=== PATIENT | female | born 1995 | race Caucasian/White ===

== ENCOUNTER 2017-07-14 07:01 | Emergency (ER) | payer OTHER, MEDICAID, SELFPAY ==
[2017-07-14 07:15] VITALS: BP 128/92; PULSE 76; RESP 18; TEMP 37.4; O2SAT 97
[2017-07-14] MEDS: ONDANSETRON 4 MG/2 ML INJ IV (07:20)
[2017-07-14] MEDS: SODIUM CHLORIDE 0.9% 1,000 ML 150 ML IV (07:20)
[2017-07-14 07:52] LABS: Add Manual Diff / Slide Review NO; Basophils Percent Auto 0.3 % (0-2); Hematocrit 41.9 % (36-46); Hemoglobin 14.3 g/dL (12.0-16.0); Lymphocytes Percent Auto 7.7 % (25-40); Mean Corpuscular HGB Conc 34.1 % (30-36); Mean Corpuscular Hemoglobin 29.3 PG (26-34); Mean Corpuscular Volume 86.1 fL (80-100); Monocytes Percent Auto 2.7 % (3-14); Neutrophils Absolute Auto 15300 /uL (3000-5900); Neutrophils Percent Auto 89.3 % (50-75); Platelet Count 359 X10^3/uL (150-400); Red Blood Cell Count 4.87 X10^6/uL (4.0-5.2); Red Cell Distribution Width 13.8 % (11.6-14.8); White Blood Cell Count 17.1 X10^3/uL (4.5-11.0)
[2017-07-14 07:58] LABS: Alanine Aminotransferase 31 IU/L (9-52); Albumin 5.1 g/dL (3.5-5.0); Albumin Globulin Ratio 1.1 (1.0-2.8); Alkaline Phosphatase 85 U/L (38-126); Aspartate Aminotransferase 33 IU/L (14-36); BUN Creatinine Ratio 34.3 (6-22); Bilirubin Total 1.1 mg/dL (0.2-1.3); Blood Urea Nitrogen 24 mg/dL (7-17); Carbon Dioxide 22 mmol/L (22-32); Chloride 101 mmol/L (98-107); Estimated Glomerular Filt Rate > 60.0 mL/min (>60); Globulin 4.5 g/dL (1.7-4.1); Glucose 120 mg/dL (70-100); Lipase 54 U/L (23-300); Potassium 3.9 mmol/L (3.4-5.1); Sodium 143 mmol/L (137-145); Total Protein 9.6 g/dL (6.3-8.2)
[2017-07-14 08:01] LABS: HEMOLYSIS 81 (0-50)
[2017-07-14] MEDS: SODIUM CHLORIDE 0.9% 1,000 ML 1000 ML IV (08:46)
[2017-07-14] MEDS: METOCLOPRAMIDE 10 MG/2 ML INJ IV (08:46)
[2017-07-14 08:53] LABS: Procalcitonin < 0.05 ng/mL (<0.5)
[2017-07-14 09:22] VITALS: BP 99/46; PULSE 76; RESP 24; O2SAT 99
[2017-07-14 10:10] LABS: Bacteria Urine None Seen; RBC Urine None Seen (0-5/HPF); WBC Urine None Seen (0-5/HPF)
[2017-07-14 10:18] LABS: Urine Amphetamines Negative (Negative); Urine Barbiturates Negative (Negative); Urine Benzodiazepines Negative (Negative); Urine Cocaine Negative (Negative); Urine MDMA Negative (Negative); Urine Methadone Negative (Negative); Urine Methamphetamines Negative (Negative); Urine Morphine/Opi cutoff 2000 Negative (Negative); Urine Oxycodone Negative (Negative); Urine Phencyclidine Negative (Negative); Urine Tetrahydrocannabinol Positive (Negative); Urine Tricyclic Antidepressant Negative (Negative)
[2017-07-14 10:34] LABS: Amorphous Sediment Urine 1+; Culture Indicated Urine Cult Not Indicated; Mucus Urine 1+ (Negative); Squamous Epithelial Cell Urine 1-5 /HPF
--- NOTE | 2017-07-14 10:53 | ED.NAVMDI ---
HPI - Nausea/Vomiting/Diarrhea General Chief complaint: Nausea/Vomiting/Diarrhea Stated complaint: VOMITING 3 DAYS,BLACK SPECKS Time Seen by Provider: 07/14/17 07:02 History of Present Illness HPI Narrative: HPI 21-year-old female with a history of recurrent episodes of catamenial nausea, vomiting, diarrhea, and abdominal discomfort presents with 3 days of nonbilious typical frequent vomiting, mild abdominal discomfort, and one day of loose watery stools symptom onset. Patient currently believes she is on her menses. Patient symptoms typically last 3 days, but of lasted upwards of a week. Patient denies fevers. Patient notes that she has had small flecks in her emesis. Patient has not seen a PCP or CORPORATE OPERATIONS COMPLIANCE MANAGER reportedly due to lack of insurance. * Denies: recent antibiotics, fresh or salt water exposure, recent hospitalization, travel, drinking untreated water, history of c. difficile. * Fever/rigors: denies. * HIV or immunocompromise: denies. * Cough: denies. M/S/F/SocHx notable for: please see HPI; remainder reviewed with patient and in chart. ROS: Negative constitutional, eye, cardiovascular, pulmonary, GI, , MSK, skin, neurologic, psychiatric, endocrine unless noted in the HPI. Exam Gen: Pleasant, non-toxic appearing, appears mild to moderately uncomfortable, holding an emesis bag. HEENT: NC, AT, PEERL, EOMI, neck supple with full range of movement. Resp: Clear to auscultation bilaterally, normal work of breathing, no accessory muscle usage. Card: Regular rate and rhythm with no murmurs, rubs, or gallops, extremities warm and well perfused. GI: Non-tender to palpation throughout all quadrants, no focal tenderness at McBurney's point, negative El's sign, non-distended, no rebound or guarding. : No suprapubic tenderness to palpation.No CVA tenderness to percussion bilaterally.Deferred MSK: No visible deformities, strength and tone without visually appreciable deficit. Skin: Normal color with no visible lesions. Neuro: AO x 3, no facial asymmetry, vision and hearing WNL. Psych: Mood and affect appropriate. Labs / Imaging (pertinent): WBC 17.1, HB 14.3, NA 143, K 3.9, glucose 120, Procalcitonin less than 0.05 UDS TCA and THC positive. MDM Previous chart, nursing note, and vitals reviewed. A: 21-year-old female with a history of recurrent episodes of catamenial nausea, vomiting, diarrhea, and abdominal discomfort presents with 3 days of nonbilious typical frequent vomiting, mild abdominal discomfort, and one day of loose watery stools symptom onset. DDx: viral enteritis, viral gastroenteritis, bacterial gastroenteritis, food poisoning, C. Difficile, dehydration, electrolyte abnormalities, septicemia/bacteremia, DKA, acute appendicitis, catamenial cyclic vomiting, cannabinoid hyperemesis. Evaluation: Given the overall symptom constellation, suspect a viral gastroenteritis versus catamenial cyclic vomiting versus cannabinoid hyperemesis. As there was a concern for significant dehydration, labs were checked, these were within clinically acceptable limits. Also considered with septicemia/bacteremia, DKA, acute appendicitis, these are felt to be effectively excluded due to the normal respiratory rate, benign abdominal exam, absence of fever, labs notable only for leukocytosis without Procalcitonin elevation and the patient?s overall well appearance. Patient given Zofran, Reglan and IV fluids and had a significant improvement in symptoms; RX for Reglan provided in patient instructed to follow up with their PCP if not improved by 4 days total symptom duration. Impression: nausea and vomiting (please reference below for remainder of encounter information) Related Data Previous Rx's Medication Instructions Recorded ranitidine HCl 150 mg PO BID #20 tab 08/26/16 promethazine 12.5 mg PO Q6HP PRN #20 tab 08/31/16 omeprazole 20 mg PO BID #28 tab 09/02/16 sulfamethoxazole-trimethoprim 1 tab PO BID #10 tab 09/02/16 Allergies Allergy/AdvReac Type Severity Reaction Status Date / Time No Known Drug Allergies Allergy Verified 07/14/17 07:46 Exam Initial Vital Signs Initial Vital Signs: Vital Signs Temperature 99.4 F 07/14/17 07:15 Pulse Rate 76 07/14/17 07:15 Respiratory Rate 18 07/14/17 07:15 Blood Pressure 128/92 H 07/14/17 07:15 Pulse Oximetry 97 07/14/17 07:15 Course Orders Ordered: ED Orders 07/14/17 07:00 Procalcitonin Stat 07/14/17 07:25 Complete Blood Count AUTO DIFF Stat Comprehensive Metabolic Panel Stat Lipase Stat 07/14/17 09:55 Rapid Drug Screen, Urine Stat Urine Microscopic Stat Sodium Chloride (Normal Saline 0.9%) 1,000 mls @ 150 mls/hr IV CONT ELIZABETH Last Infusion: 07/14/17 08:37 Dose: 0 mls/hr Admin: 07/14/17 07:20 Dose: 150 mls/hr Discontinued Medications Sodium Chloride (Normal Saline 0.9%) 1,000 mls @ 1,000 mls/hr IV BOLUS ONE Stop: 07/14/17 09:23 Last Infusion: 07/14/17 10:13 Dose: 0 mls/hr Admin: 07/14/17 08:46 Dose: 1,000 mls/hr Metoclopramide HCl (Reglan) 10 mg IV NOW ONE Stop: 07/14/17 08:25 Last Admin: 07/14/17 08:46 Dose: 10 mg Ondansetron HCl (Zofran) 4 mg IV NOW ONE Stop: 07/14/17 07:36 Last Admin: 07/14/17 07:20 Dose: 4 mg Vital Signs - 8 hr 07/14/17 07:15 07/14/17 09:22 Temperature 99.4 F Pulse Rate 76 76 Respiratory Rate 18 24 Blood Pressure 128/92 H Blood Pressure [Right Arm] 99/46 L Pulse Oximetry 97 99 MDM - Nausea/Vomiting/Diarrhea Lab Data Result diagrams: 07/14/17 07:25 07/14/17 07:25 Lab Results 07/14/17 07/14/17 07/14/17 Range/Units 07:00 07:25 07:25 WBC 17.1 H (4.5-11.0) X10^3/uL RBC 4.87 (4.0-5.2) X10^6/uL Hgb 14.3 (12.0-16.0) g/dL Hct 41.9 (36-46) % MCV 86.1 (80-100) fL MCH 29.3 (26-34) PG MCHC 34.1 (30-36) % RDW 13.8 (11.6-14.8) % Plt Count 359 (150-400) X10^3/uL Neut % (Auto) 89.3 H (50-75) % Lymph % (Auto) 7.7 L (25-40) % [place] % (Auto) 2.7 L (3-14) % Eos % (Auto) 0.0 L (2-4) % Baso % (Auto) 0.3 (0-2) % Neut # (Auto) 39777 H (0317-7422) /uL Sodium 143 (137-145) mmol/L Potassium 3.9 (3.4-5.1) mmol/L Chloride 101 (98-107) mmol/L Carbon Dioxide 22 (22-32) mmol/L BUN 24 H (7-17) mg/dL Creatinine 0.70 (0.52-1.04) mg/dL Estimated GFR > 60.0 (>60) mL/min BUN/Creatinine Ratio 34.3 H (6-22) Glucose 120 H (70-100) mg/dL Calcium 10.0 (8.4-10.2) mg/dL Total Bilirubin 1.1 (0.2-1.3) mg/dL AST 33 (14-36) IU/L ALT 31 (9-52) IU/L Alkaline Phosphatase 85 (38-126) U/L Total Protein 9.6 H (6.3-8.2) g/dL Albumin 5.1 H (3.5-5.0) g/dL Globulin 4.5 H (1.7-4.1) g/dL Albumin/Globulin Ratio 1.1 (1.0-2.8) Lipase 54 (23-300) U/L Procalcitonin < 0.05 (<0.5) ng/mL Urine RBC (0-5/HPF) Urine WBC (0-5/HPF) Ur Squamous Epith Cells Amorphous Sediment Urine Bacteria (None) Urine Mucus (Negative) Ur Culture Indicated? Micro UA Comment Urine Opiates Screen (Negative) Ur Oxycodone Screen (Negative) Urine Methadone Screen (Negative) Ur Barbiturates Screen (Negative) U Tricyclic Antidepress (Negative) Ur Phencyclidine Scrn (Negative) Ur Amphetamines Screen (Negative) U Methamphetamines Scrn (Negative) Ur MDMA Scrn (Ecstasy) (Negative) U Benzodiazepines Scrn (Negative) Urine Cocaine Screen (Negative) U Marijuana (THC) Screen (Negative) 07/14/17 07/14/17 Range/Units 09:55 09:55 WBC (4.5-11.0) X10^3/uL RBC (4.0-5.2) X10^6/uL Hgb (12.0-16.0) g/dL Hct (36-46) % MCV (80-100) fL MCH (26-34) PG MCHC (30-36) % RDW (11.6-14.8) % Plt Count (150-400) X10^3/uL Neut % (Auto) (50-75) % Lymph % (Auto) (25-40) % [place] % (Auto) (3-14) % Eos % (Auto) (2-4) % Baso % (Auto) (0-2) % Neut # (Auto) (3211-6271) /uL Sodium (137-145) mmol/L Potassium (3.4-5.1) mmol/L Chloride (98-107) mmol/L Carbon Dioxide (22-32) mmol/L BUN (7-17) mg/dL Creatinine (0.52-1.04) mg/dL Estimated GFR (>60) mL/min BUN/Creatinine Ratio (6-22) Glucose (70-100) mg/dL Calcium (8.4-10.2) mg/dL Total Bilirubin (0.2-1.3) mg/dL AST (14-36) IU/L ALT (9-52) IU/L Alkaline Phosphatase (38-126) U/L Total Protein (6.3-8.2) g/dL Albumin (3.5-5.0) g/dL Globulin (1.7-4.1) g/dL Albumin/Globulin Ratio (1.0-2.8) Lipase (23-300) U/L Procalcitonin (<0.5) ng/mL Urine RBC None seen (0-5/HPF) Urine WBC None seen (0-5/HPF) Ur Squamous Epith Cells 1-5 /hpf Amorphous Sediment 1+ Urine Bacteria None seen (None) Urine Mucus 1+ H (Negative) Ur Culture Indicated? Cult not indicated Micro UA Comment Not Reportable Urine Opiates Screen Negative (Negative) Ur Oxycodone Screen Negative (Negative) Urine Methadone Screen Negative (Negative) Ur Barbiturates Screen Negative (Negative) U Tricyclic Antidepress Negative (Negative) Ur Phencyclidine Scrn Negative (Negative) Ur Amphetamines Screen Negative (Negative) U Methamphetamines Scrn Negative (Negative) Ur MDMA Scrn (Ecstasy) Negative (Negative) U Benzodiazepines Scrn Negative (Negative) Urine Cocaine Screen Negative (Negative) U Marijuana (THC) Screen Positive H (Negative) Discharge Plan Departure Prescriptions: No Action ranitidine HCl 150 MG tablet 150 mg PO BID Qty: 20 RF: 0 promethazine 12.5 MG tablet 12.5 mg PO Q6HP PRNQty: 20 RF: 0 omeprazole 20 MG tablet,delayed release (DR/EC) 20 mg PO BID Qty: 28 RF: 0 sulfamethoxazole-trimethoprim 800 MG/160 MG tablet 1 tab PO BID Qty: 10 RF: 0
[2017-07-14 11:03] VITALS: BP 159/110; PULSE 68; RESP 14; O2SAT 99
[2017-07-14] MEDS: HALOPERIDOL 5 MG/ML VIAL 3 MG IV (11:39)
[2017-07-14] MEDS: diphenhydrAMINE 50 MG/ML VIAL 25 MG IV (11:39)
[2017-07-14 12:01] VITALS: BP 139/89; PULSE 77; RESP 24; O2SAT 100
[2017-07-14 13:01] VITALS: BP 108/51; PULSE 66; RESP 24; O2SAT 98
== END 2017-07-14 12:59 | disposition home or self-care (01) ==
PROVIDERS: Emergency Provider Emergency Medicine; Family Provider Nurse Practitioner Gerontology; PCP Nurse Practitioner Gerontology
DX: R11.2 Nausea with vomiting, unspecified (principal)
CPT/HCPCS: 36591; 80053; 80305; 81003; 81015; 81025; 83690; 84145; 85025; 96361; 96374; 96375; 99283; 99284; J1200; J1630; J2405; J2765

== ENCOUNTER 2017-10-06 10:28 | Day surgery (SDC) | payer OTHER, MEDICAID, SELFPAY ==
[2017-09-15 17:00] VITALS: BMI 23.5
[2017-10-06] VITALS (12 sets, daily range): BP systolic 124–169; BP diastolic 67–113; PULSE 61–70; RESP 12–22; TEMP 36.4–37.1; O2SAT 97–100; BMI 23.5
[2017-10-06] MEDS: LACTATED RINGERS 1,000 ML 100 ML IV (11:12)
--- NOTE | 2017-10-06 11:42 | PM.PREOP ---
Pre-operative Note Interval Note Pre-op Check: Yes History & Physical exam performed today by Physician Changes: No
--- NOTE | 2017-10-06 12:41 | SUR.OPER ---
Lithotomy on padded OR bed, head on pillow, arms secured on padded arm boards at <90 degrees abduction. Legs secured in padded yellow fins stirrups.
[2017-10-06] MEDS: BUPIVACAINE 0.5% W/ EPI (PF) VIAL 10 ML INJ (12:56)
[2017-10-06] MEDS: fentaNYL 100 MCG/2 ML INJ 50 MCG IV (13:18)
[2017-10-06] MEDS: OXYCODONE/ACETAMINOPHEN 5/325 TABLET 1 TAB PO (13:52)
--- NOTE | 2017-10-06 14:16 | SUR.PHASEII ---
stable pt, mom obtained prescription while pt in pacu, abdomen with dressings remain c/d/i. no vaginal drainage. pt left when ready and left in stable condition.
--- NOTE | 2017-10-06 14:20 | SUR.PHASEI ---
late entry: bp high on admit to pacu, dr pitts aware. bp better at discharge.
--- NOTE | 2017-10-06 14:20 | SUR.PHASEI ---
Addendum entered by Jasmina Keyes R.N. 10/06/17 14:22: Original Note: addendum, pt medicated with fentanyl for pain, plan to go to opd and after tolerates applesauce will medicate with pwercocet.
--- NOTE | 2017-10-10 07:49 | P.OP_ITS ---
Operative Date/Time/Diagnoses Date of procedure: 10/06/17 Time of procedure: 12:15 Pre-op diagnosis: Pelvic pain Dysmenorrhea Post-op diagnosis: same Procedure: Procedures Operation Date: 10/06/17 11:15 Actual Procedures Side Surgeon p Diagnostic Laparoscopy w/Fulguration Endometriosis Lelia Lay MD Indications: Pelvic pain Dysmenorrhea Surgeon: Lelia Lay Anesthesia Type: General Operative Notes Findings: 6 week size anteverted uterus. Endometriosis of the right ovarian fossa and right ovary Closure Type: primary Specimen(s): none Estimated blood loss (mL): 5 Blood products transfused: none Procedure in detail: After informed consent was obtained, the patient was taken to the operating room where she was placed in the dorsal supine position. After adequate general endotracheal anesthesia was achieved, she was placed in the dorsal lithotomy position, and prepped and draped in the usual sterile fashion. A time-out was performed. A bivalve speculum was placed into the vagina , and the anterior lip of the cervix grasped with a single-tooth tenaculum. Cervical os was sequentially dilated until the Zumi uterine manipulator could pass easily into the endometrial cavity. The single-tooth tenaculum was removed from the anterior lip of the cervix. The bivalve speculum was removed from the vagina. Attention was then turned to the abdomen where 6 cc of 0.5% Marcaine with epinephrine were injected in in the umbilical fold. A 5 mm incision was made. The Veress needle was placed into the peritoneal cavity, and placement confirmed by aspiration and drop test. The abdominal cavity was insufflated with 3.2 L of CO2. Veress needle was removed, and a 5 mm trocar was placed without difficulty. A 2nd incision was made after 6 cc of 0.5% Marcaine with epinephrine were injected midway between the pubic symphysis and umbilicus on the patient's left side. A 5 mm trocar was placed under direct visualization. A 3rd incision was made midway between the pubic symphysis to the umbilicus on the right side. A 3rd 5 mm trocars placed under direct visualization. The probe was used to identify both tubes and ovaries. The right ovary had endometriosis on the surface of the ovary as well as in the ovarian fossa. The anterior and posterior cul-de-sacs were free of endometriosis. There were no adhesions. There was no evidence of endometriosis in the left ovary or ovarian fossa. Appendix was normal. Gallbladder and liver were normal. The endometriotic lesions on the right ovary and in the right ovarian fossa were cauterized with the Endo Rachel attached to cautery. The instruments were removed from the abdomen. The CO2 was allowed to escape. All of the incisions were closed with 4 0 undyed Vicryl in a subcuticular fashion. Steri-Strips, 2 x 2, and op site were placed. The Zumi uterine manipulator was removed from the uterus. Sponge, lap, and instrument counts were correct x2. The patient tolerated the procedure well, and was taken to PACU in stable condition. Complications: none Post-operative Condition: stable Disposition: PACU Plan for aftercare: Home after recovery
== END 2017-10-06 14:18 | disposition home or self-care (01) ==
PROVIDERS: Family Provider Nurse Practitioner Gerontology; PCP Nurse Practitioner Gerontology; Visit Provider Obstetrics & Gynecology
PROC: 0U5B4ZZ Destruction of Endometrium, Percutaneous Endoscopic Approach (ICD-10-PCS; CPT 58662; principal; 2017-10-06 11:15)
DX: N92.0 Excessive and frequent menstruation with regular cycle (principal); N94.6 Dysmenorrhea, unspecified; N80.1 Endometriosis of ovary
CPT/HCPCS: 58662; J0330; J1100; J1885; J2250; J2405; J2704; J3010

== ENCOUNTER → 2019-10-28 11:58 | Outpatient (CLI) | payer OTHER, SELFPAY ==
--- NOTE | 2019-10-28 | DI.RAD.S_ITS ---
PROCEDURE: XR LUMBAR SPINE 2-3V INDICATIONS: numbness tingling in feet and lower legs. Pain at L4-L5-S1 TECHNIQUE: 3 views of the lumbar spine were acquired. COMPARISON: None. FINDINGS: Bones: No fracture. Multilevel degenerative endplate sclerosis and spurring. Diffuse facet arthropathy. Mild narrowing of the L1-L2 disc space. Trace retrolisthesis of L5 on S1. Lateral curvature of the spine noted. Incidentally noted IUD IMPRESSION: Mild lumbar spondylosis as above. Trace retrolisthesis of L5 on S1. Lower lumbar facet arthropathy Dictated by: Allan Anaya M.D. on 10/28/2019 at 15:09 Approved by: Allan Anaya M.D. on 10/28/2019 at 15:11
--- NOTE | 2019-10-28 | DI.RAD.S_ITS ---
PROCEDURE: XR CERVICAL SPINE 2V OR 3V INDICATIONS: numbness/tingling in hands/fingers/forearms TECHNIQUE: 3 view(s) of the cervical spine were acquired. COMPARISON: None. FINDINGS: Bones: No fractures or dislocations to the T1 level. The lateral masses of C1 appear intact on the odontoid view. No suspicious bony lesions. Soft tissues: No prevertebral soft tissue swelling. IMPRESSION: No abnormality found. Source of current symptoms is not identified. Depending on the clinical status follow-up by contrast-enhanced MR scanning may be warranted through the cervical and upper thoracic spine and if underlying multiple sclerosis is clinically suspected brain MR imaging without and with contrast at that time also could be obtained. Dictated by: Tai Perez M.D. on 10/28/2019 at 13:35 Approved by: Tai Perez M.D. on 10/28/2019 at 13:37
--- NOTE | 2019-10-28 | DI.RAD.S_ITS ---
PROCEDURE: XR SACRUM COCCYX MIN 2V INDICATIONS: numbness tingling in feet and lower legs. Pain at L4-L5 S1 TECHNIQUE: 3 views of the sacrum and coccyx acquired. COMPARISON: None. FINDINGS: Bones: No fractures or dislocations. No suspicious bony lesions. Soft tissues: Visualized bowel gas pattern is normal. No suspicious soft tissue densities. Note is made of a midline pelvic IUD. IMPRESSION: Normal appearing lower lumbosacral spine and sacrum, centrally positioned IUD. Dictated by: Tai Perez M.D. on 10/28/2019 at 13:38 Approved by: Tai Perez M.D. on 10/28/2019 at 13:38
--- NOTE | 2019-10-28 | DI.RAD.S_ITS ---
PROCEDURE: XR THORACIC SPINE 3V INDICATIONS: numbness/tingling in hands/fingers/forearms TECHNIQUE: 2 views of the thoracic spine were acquired. COMPARISON: None. FINDINGS: Bones: No fractures or dislocations. No suspicious bony lesions. Twelve pairs of ribs are noted, and appear intact where visualized. Stance convex leftward curvature of the low thoracic spine is incidentally noted Soft tissues: No paravertebral stripe thickening. IMPRESSION: No acute disease, no morphologic anomaly identified. Dictated by: Tai Perez M.D. on 10/28/2019 at 13:37 Approved by: Tai Perez M.D. on 10/28/2019 at 13:38
== END ==
PROVIDERS: Family Provider Nurse Practitioner Gerontology; PCP Physician Assistant; Referring Provider Physician Assistant; Visit Provider Physician Assistant
DX: M47.816 Spondylosis without myelopathy or radiculopathy, lumbar region (principal); M54.2 Cervicalgia; M54.6 Pain in thoracic spine; M54.5 Low back pain; R20.0 Anesthesia of skin; Z97.5 Presence of (intrauterine) contraceptive device
CPT/HCPCS: 72040; 72072; 72100; 72220

== ENCOUNTER 2020-02-14 22:35 | Emergency (ER) | payer OTHER, SELFPAY ==
[2020-02-14 22:39] VITALS: BP 142/101; PULSE 89; RESP 16; TEMP 37.2; O2SAT 100; BMI 25.0
[2020-02-14 23:00] LABS: Pregnancy Test Urine Negative (Negative)
[2020-02-14 23:50] LABS: Appearance Urine UA Slightly Cloudy; Color Urine UA PYRIDIUM ORANGE; pH Urine UA 5 (4.5-8.0)
[2020-02-14 23:51] LABS: Glucose Urine UA 1+ g/dL (Negative); Leukocyte Esterase Urine UA 1+ (NEGATIVE); Occult Blood Urine UA 3+ (Negative); RBC Urine 1-5/HPF (0-5/HPF); WBC Urine 5-10/HPF (0-5/HPF)
[2020-02-14 23:52] LABS: Bacteria Urine Moderate (10-30); Culture Indicated Urine Specimen Cultured; Mucus Urine 1+ (Negative); Squamous Epithelial Cell Urine 5-10 /HPF (0-5/HPF)
[2020-02-15 00:03] LABS: Add Manual Diff / Slide Review NO; Basophils Absolute Auto 100 /uL (0-100); Eosinophils Absolute Auto 200 /uL (0-450); Hematocrit 38.3 % (36-46); Hemoglobin 12.7 g/dL (12.0-16.0); Lymphocytes Absolute Auto 2200 /uL (1100-4500); Lymphocytes Percent Auto 28.1 % (25-40); Mean Corpuscular HGB Conc 33.2 % (30-36); Mean Corpuscular Hemoglobin 29.3 PG (26-34); Mean Corpuscular Volume 88.5 fL (80-100); Monocytes Absolute Auto 700 /uL (0-900); Monocytes Percent Auto 9.6 % (3-14); Neutrophils Absolute Auto 4500 /uL (1500-7000); Neutrophils Percent Auto 59.3 % (50-75); Platelet Count 282 X10^3/uL (150-400); Red Blood Cell Count 4.33 X10^6/uL (4.0-5.2); Red Cell Distribution Width 13.1 % (11.6-14.8); White Blood Cell Count 7.7 X10^3/uL (4.5-11.0)
[2020-02-15 00:12] LABS: INR 1.1 (0.9-1.3); Prothrombin Time 12.3 SECONDS (10.1-12.7)
[2020-02-15 00:15] LABS: PTT Partial Thromboplastin Tim 31 SECONDS (26.4-36.2)
[2020-02-15 00:17] LABS: Alanine Aminotransferase 22 IU/L (<35); Albumin 4.6 g/dL (3.5-5.0); Albumin Globulin Ratio 1.3 (1.0-2.8); Alkaline Phosphatase 58 U/L (38-126); Aspartate Aminotransferase 23 IU/L (14-36); BUN Creatinine Ratio 18.1 (6-22); Bilirubin Total 0.2 mg/dL (0.2-1.3); Blood Urea Nitrogen 15 mg/dL (7-17); Calcium 9.1 mg/dL (8.4-10.2); Carbon Dioxide 27 mmol/L (22-32); Chloride 105 mmol/L (98-107); Estimated Glomerular Filt Rate > 60.0 mL/min (>60); Globulin 3.6 g/dL (1.7-4.1); Glucose 114 mg/dL (70-100); HEMOLYSIS < 15 (0-50); Lipase 117 U/L (23-300); Potassium 3.5 mmol/L (3.4-5.1); Sodium 140 mmol/L (137-145); Total Protein 8.2 g/dL (6.3-8.2)
--- NOTE | 2020-02-15 00:25 | DI.US.S_ITS ---
PROCEDURE: US PELVIC COMPLETE INDICATIONS: lower pelvic pain had IUD 5 months ago TECHNIQUE: Real-time scanning was performed of the pelvic organs, with image documentation. Additional endovaginal scanning was necessary due to incomplete visualization of the adnexal and endometrial structures by transabdominal scanning. COMPARISON: [facility], , US PELVIC COMPLETE, 10/26/2019, 8:49. FINDINGS: Transabdominal scanning: Limited scanning through the kidneys shows no hydronephrosis. No pathologic free abdominal or pelvic fluid. Endovaginal scanning: Uterus: Uterus is normal in size at 7.3 x 3.3 x 4.8 cm. The endometrium measures 4.1 mm in combined thickness. There is an IUD within the endometrial canal. Ovaries: Ovaries are normal in size and echotexture. Right ovary measures 3.1 x 2.7 x 2.6 cm. Left ovary measures 3.2 x 2.3 x 2.0 cm. IMPRESSION: 1. Normal pelvic ultrasound exam. 2. IUD in uterine cavity. No significant discrepancy with the night assistant radiology preliminary report. Dictated by: Yoan Varela M.D. on 02/15/2020 at 9:26 Approved by: Yoan Varela M.D. on 02/15/2020 at 9:28
--- NOTE | 2020-02-15 00:25 | ED.GENADULT ---
HPI - General Adult General Chief complaint: Abdominal Pain Stated complaint: SEVERE LOWER BACK PAIN BLEEDING Time Seen by Provider: 02/14/20 23:58 Source: patient Mode of arrival: Ambulatory Limitations: no limitations History of Present Illness HPI narrative: Patient states she was seen a couple days ago in the walk-in clinic and had a urinalysis performed was told that she had a urinary tract infection. Was placed on antibiotics. She is unsure of the exact antibiotic that she was placed on however after naming several them she thinks that it is Bactrim. She states she is still continuing to have the lower abdominal pain that brought her to the walk-in clinic that led to the diagnosis of urinary tract infection but she is also having lower back pain. She also stated that she is having some vaginal spotting. She had an IUD placed approximately 5 months ago. She is concerned that there is potentially some thin wrong with the IUD. Related Data Home Medications Medication Instructions Recorded Confirmed amlodipine 2.5 mg tablet 2.5 mg PO DAILY 10/26/19 10/26/19 diclofenac potassium 50 mg tablet 50 mg PO DAILY 10/26/19 10/26/19 sumatriptan 5 mg/actuation nasal 5 mg NASAL Q2-4H PRN 10/26/19 10/26/19 spray Previous Rx's Medication Instructions Recorded cephalexin [Keflex] 500 mg PO BID 5 Days #10 cap 02/15/20 Allergies Allergy/AdvReac Type Severity Reaction Status Date / Time No Known Drug Allergies Allergy Verified 10/26/19 08:29 Review of Systems Constitutional Constitutional: Denies fever(s) Cardiovascular Cardiovascular: Denies chest pain and Denies dyspnea Respiratory Respiratory: Denies dyspnea Gastrointestinal Gastrointestinal: Reports abdominal pain, Denies nausea and Denies vomiting Genitourinary Genitourinary: Reports dysuria Genitourinary: Reports dysuria and Reports vaginal discharge Musculoskeletal Musculoskeletal: Reports back pain Integumentary/Breasts Skin/Breast: Denies rash Neurologic Neurologic: Denies behavioral changes Psychiatric Psychiatric: Denies behavioral changes Hematologic/Lymphatic Hematologic/Lymphatic: Denies easy bleeding and Denies easy bruising Allergic/Immunologic Allergic/Immunologic: Denies urticaria Patient History Medical History Anxiety Dysmenorrhea Endometriosis History of gastritis History of migraine headaches Menorrhagia Surgical History (Updated 10/28/17 @ 15:16 by Kai Gallardo LPN) Status post surgery (10/06/17) Social History household members: friend(s) Smoking Status: Former smoker Smoking Status: Former smoker Substance Use Type: marijuana Exam Initial Vital Signs Initial Vital Signs: Vital Signs Temperature 99.0 F 02/14/20 22:39 Pulse Rate 89 02/14/20 22:39 Respiratory Rate 16 02/14/20 22:39 Blood Pressure 142/101 H 02/14/20 22:39 Pulse Oximetry 100 02/14/20 22:39 Const General: cooperative and comfortable Limitations: mental status not altered HENMT Head: normal to inspection and normocephalic Resp Effort & Inspection: normal respiratory effort Auscultation: clear to auscultation bilaterally Cardio Rate: regular rate Rhythm: regular rhythm GI Inspection: non-distended Palpation: soft and tender (Lower abdomen) Back/Spine/Pelvis Back: No CVA tenderness Thoracic/Lumbar Spine: paraspinal tenderness (Lumbar) Skin Lesions: no lesions Rashes: no rashes Neuro General: patient alert and patient awake Cognition: normal cognition Speech: speech normal Extrem General: capillary refill normal Psych Appearance: grossly normal and well kempt Course Orders Ordered: ED Orders 02/14/20 22:46 Test Urine Stat Urinalysis and Microscopic Stat Urine Culture Stat 02/14/20 23:53 Complete Blood Count AUTO DIFF Stat Comprehensive Metabolic Panel Stat Lipase Stat Partial Thromboplastin Time Stat Prothrombin Time INR Stat 02/15/20 00:25 US pelvic complete Stat Discontinued Medications Cephalexin HCl (Cephalexin 250 Mg Capsule) 500 mg PO NOW ONE Stop: 02/15/20 01:45 Last Admin: 02/15/20 01:53 Dose: 500 mg Documented by: KACI Ketorolac Tromethamine (Ketorolac 60 Mg/2 Ml Vial) 30 mg IV NOW ONE Stop: 02/15/20 00:27 Last Admin: 02/15/20 00:32 Dose: 30 mg Documented by: EDUARDA Vital Signs Vital signs: Vital Signs - 8 hr 02/15/20 01:32 Pulse Rate 78 Respiratory Rate 16 Blood Pressure 111/65 Pulse Oximetry 99 Medical Decision Making Lab Data Lab results reviewed: Yes I reviewed the patient's lab results. Result diagrams: 02/14/20 23:53 02/14/20 23:53 Labs: Lab Results 02/14/20 02/14/20 02/14/20 Range/Units 22:46 22:46 23:53 WBC 7.7 (4.5-11.0) X10^3/uL RBC 4.33 (4.0-5.2) X10^6/uL Hgb 12.7 (12.0-16.0) g/dL Hct 38.3 (36-46) % MCV 88.5 (80-100) fL MCH 29.3 (26-34) PG MCHC 33.2 (30-36) % RDW 13.1 (11.6-14.8) % Plt Count 282 (150-400) X10^3/uL Neut % (Auto) 59.3 (50-75) % Lymph % (Auto) 28.1 (25-40) % [place] % (Auto) 9.6 (3-14) % Eos % (Auto) 2.0 (2-4) % Baso % (Auto) 1.0 (0-2) % Neut # (Auto) 4500 (8950-5258) /uL Lymph # (Auto) 2200 (9191-5193) /uL [place] # (Auto) 700 (0-900) /uL Eos # (Auto) 200 (0-450) /uL Baso # (Auto) 100 (0-100) /uL PT (10.1-12.7) SECONDS INR (0.9-1.3) APTT (26.4-36.2) SECONDS Sodium (137-145) mmol/L Potassium (3.4-5.1) mmol/L Chloride (98-107) mmol/L Carbon Dioxide (22-32) mmol/L BUN (7-17) mg/dL Creatinine (0.52-1.04) mg/dL Estimated GFR (>60) mL/min BUN/Creatinine Ratio (6-22) Glucose (70-100) mg/dL Calcium (8.4-10.2) mg/dL Total Bilirubin (0.2-1.3) mg/dL AST (14-36) IU/L ALT (<35) IU/L Alkaline Phosphatase (38-126) U/L Total Protein (6.3-8.2) g/dL Albumin (3.5-5.0) g/dL Globulin (1.7-4.1) g/dL Albumin/Globulin Ratio (1.0-2.8) Lipase (23-300) U/L Urine Color Pyridium orange Urine Appearance Slightly cloudy Urine pH 5 (4.5-8.0) Ur Specific [place] 1.030 (1.000-1.035) Urine Protein Not Reportable Urine Glucose (UA) 1+ H (Negative) g/dL Urine Ketones Not Reportable Urine Occult Blood 3+ H (Negative) Urine Nitrate Not Reportable Urine Bilirubin Not Reportable Urine Urobilinogen Not Reportable Ur Leukocyte Esterase 1+ H (NEGATIVE) Urine RBC 1-5/hpf (0-5/HPF) Urine WBC 5-10/hpf H (0-5/HPF) Ur Squamous Epith Cells 5-10 /hpf H (0-5/HPF) Urine Bacteria Moderate (10-30) H (None) Urine Mucus 1+ H (Negative) Ur Culture Indicated? Specimen cultured Micro UA Comment * Urine Test Negative (Negative) 02/14/20 02/14/20 Range/Units 23:53 23:53 WBC (4.5-11.0) X10^3/uL RBC (4.0-5.2) X10^6/uL Hgb (12.0-16.0) g/dL Hct (36-46) % MCV (80-100) fL MCH (26-34) PG MCHC (30-36) % RDW (11.6-14.8) % Plt Count (150-400) X10^3/uL Neut % (Auto) (50-75) % Lymph % (Auto) (25-40) % [place] % (Auto) (3-14) % Eos % (Auto) (2-4) % Baso % (Auto) (0-2) % Neut # (Auto) (6500-7913) /uL Lymph # (Auto) (6450-4354) /uL [place] # (Auto) (0-900) /uL Eos # (Auto) (0-450) /uL Baso # (Auto) (0-100) /uL PT 12.3 (10.1-12.7) SECONDS INR 1.1 (0.9-1.3) APTT 31 (26.4-36.2) SECONDS Sodium 140 (137-145) mmol/L Potassium 3.5 (3.4-5.1) mmol/L Chloride 105 (98-107) mmol/L Carbon Dioxide 27 (22-32) mmol/L BUN 15 (7-17) mg/dL Creatinine 0.83 (0.52-1.04) mg/dL Estimated GFR > 60.0 (>60) mL/min BUN/Creatinine Ratio 18.1 (6-22) Glucose 114 H (70-100) mg/dL Calcium 9.1 (8.4-10.2) mg/dL Total Bilirubin 0.2 (0.2-1.3) mg/dL AST 23 (14-36) IU/L ALT 22 (<35) IU/L Alkaline Phosphatase 58 (38-126) U/L Total Protein 8.2 (6.3-8.2) g/dL Albumin 4.6 (3.5-5.0) g/dL Globulin 3.6 (1.7-4.1) g/dL Albumin/Globulin Ratio 1.3 (1.0-2.8) Lipase 117 (23-300) U/L Urine Color Urine Appearance Urine pH (4.5-8.0) Ur Specific [place] (1.000-1.035) Urine Protein Urine Glucose (UA) (Negative) g/dL Urine Ketones Urine Occult Blood (Negative) Urine Nitrate Urine Bilirubin Urine Urobilinogen Ur Leukocyte Esterase (NEGATIVE) Urine RBC (0-5/HPF) Urine WBC (0-5/HPF) Ur Squamous Epith Cells (0-5/HPF) Urine Bacteria (None) Urine Mucus (Negative) Ur Culture Indicated? Micro UA Comment Urine Test (Negative) Imaging Data [place] - [employer]: Radiologist's Impression: No significant abnormality MDM Narrative Medical decision making narrative: Patient has had 1 dose of an antibiotic making the urinalysis today somewhat skewed. She is not 100% sure the antibiotic that she was placed on but she thinks that it is Bactrim. Her pelvic ultrasound today is unremarkable. The IUD is in place. Her urinalysis does have some concerning findings of urinary tract infection and his symptoms are concerning for this. Plan to be is to switch her from Bactrim to Keflex. I feel we can hold on an abdominal CT scan for now. She was given return precautions and follow-up instructions. She expressed understanding and agreement. Discharge Plan Departure Patient Disposition: Home Clinical Impression: UTI (urinary tract infection), Pelvic pain Instructions: DI for Urinary Tract Infection (UTI) Activity Restrictions/Additional Instructions: I recommend that you stop taking your current antibiotic and start taking the antibiotic you were given this evening as directed. Contact your primary provider for follow-up. Return to the emergency department for any new or worsening symptoms Prescriptions: New cephalexin [Keflex] 500 mg capsule 500 mg PO BID 5 Days Qty: 10 RF: 0 No Action amlodipine 2.5 mg tablet 2.5 mg PO DAILY RF: 0 diclofenac potassium 50 mg tablet 50 mg PO DAILY RF: 0 sumatriptan 5 mg/actuation spray,non-aerosol 5 mg NASAL Q2-4H PRNRF: 0 Referrals: Cherelle Long PA-C [Primary Care Provider] -
[2020-02-15] MEDS: KETOROLAC 60 MG/2 ML VIAL 30 MG IV (00:32)
[2020-02-15 01:32] VITALS: BP 111/65; PULSE 78; RESP 16; O2SAT 99
[2020-02-15] MEDS: cephALEXin 250 MG CAPSULE 500 MG PO (01:53)
== END 2020-02-15 02:00 | disposition home or self-care (01) ==
PROVIDERS: Emergency Provider Emergency Medicine; Family Provider Nurse Practitioner Gerontology; PCP Physician Assistant
DX: N39.0 Urinary tract infection, site not specified (principal); P10.2 Intraventricular hemorrhage due to birth injury; Z97.5 Presence of (intrauterine) contraceptive device; R30.0 Dysuria; M54.9 Dorsalgia, unspecified
CPT/HCPCS: 36415; 76830; 76856; 80053; 81001; 81025; 83690; 85025; 85610; 85730; 87086; 96372; 99283; 99284; J1885

== ENCOUNTER 2024-12-02 08:23 | Emergency (ER) | payer OTHER, SELFPAY ==
[2024-12-02] VITALS (8 sets, daily range): BP systolic 138–162; BP diastolic 86–115; PULSE 87–101; RESP 17–29; TEMP 37.9–38.1; O2SAT 98–99; BMI 29.7
--- NOTE | 2024-12-02 08:41 | DI.RAD.S_ITS ---
PROCEDURE: XR KNEE RT 3V INDICATIONS: Fall/pain TECHNIQUE: 3 views of the knee were acquired. COMPARISON: None. FINDINGS: Bones: No acute fractures or dislocations. No suspicious bony lesions. Soft tissues: No joint effusion. No suspicious soft tissue calcifications. Mild prepatellar subcutaneous edema. IMPRESSION: No acute osseous abnormality. If there is continued clinical concern or persistent symptoms, repeat radiographs or cross-sectional imaging (e.g. CT, MRI) may be helpful for further evaluation. Approved by: Shar Shabazz M.D. on 12/02/2024 at 9:02
--- NOTE | 2024-12-02 08:44 | ED.DIZZY ---
HPI - Dizziness General Chief Complaint: Weakness Stated Complaint: Severe Amentia x 1 day fell hit head Time Seen by Provider: 12/02/24 08:33 History of Present Illness HPI Narrative: Patient is history of anemia in the past without any previous blood transfusions or iron supplements. Is being follow up by her primary care. Patient has history of endometriosis. LMP 4 weeks ago. She does have heavy cycles. Patient states yesterday she was getting out of her car in the driveway and got lightheaded and fell to the ground. Has bruising to the right forehead right knee and left wrist. She states her left wrist does not hurt. Tetanus is up-to-date. Fever noted here. No known sick contacts. Patient is anxious. Warm pink flush skin on the face. [place] conjunctiva, brisk cap refills. Patient denies any abuse Related Data Home Medications ?Medication ?Instructions ?Recorded ?Confirmed diclofenac potassium 50 mg tablet 50 mg PO DAILY 10/26/19 02/18/20 sumatriptan 5 mg/actuation nasal 5 mg intranasal Q2-4H PRN 10/26/19 02/18/20 spray Allergies Allergy/AdvReac Type Severity Reaction Status Date / Time No Known Drug Allergies Allergy Verified 12/02/24 08:51 Review of Systems Review of Systems Narrative: GENERAL: Negative chills, fatigue, malaise, fever, sweats. HEENT: Negative sinus pain, ear pain, sore throat RESPIRATORY: Negative dyspnea, cough CARDIOVASCULAR: Negative chest pain, palpitations GASTROINTESTINAL: Negative vomiting, nausea, abdominal pain : Negative dysuria, frequency, hematuria MUSCULOSKELETAL: Positive muscle or bony pain SKIN: Negative rash, skin lesions NEUROLOGIC: Negative weakness, numbness, positive dizziness ROS Unobtainable: All systems reviewed & are unremarkable except as noted in HPI and below Patient History Medical History Anxiety Dysmenorrhea Endometriosis History of gastritis History of migraine headaches Menorrhagia Surgical History (Updated 10/28/17 @ 15:16 by Kia Gallardo LPN) Status post surgery (10/06/17) Social History household members: friend(s) Smoking Status: Current some day smoker Exam Narrative Exam Narrative: GENERAL: in no distress, not toxic not dyspneic HEAD: Normocephalic. There is ecchymosis edema to the right forehead/contusion. EYES: Pupils equal round pink conjunctiva ENT: Mucous membranes moist. NECK: Trachea midline. No midline tenderness or step-off. CARDIOVASCULAR: Regular rate and rhythm RESPIRATORY: Clear to auscultation. Breath sounds equal bilaterally. No wheezes, rales, or rhonchi. GASTROINTESTINAL: Abdomen soft, non-tender EXTREMITIES: No gross deformities. Bruising to the right knee but able to flex and extend but does have pain with it.. Bruising to the dorsum of the left wrist but has full active range of motion without pain. BACK: No flank tenderness. NEURO: AOx4. Clear speech SKIN: Warm and dry PSYCH: Patient is anxious, is cooperative Initial Vital Signs Initial Vital Signs: Vital Signs Temperature 100.6 F H 12/02/24 08:44 Pulse Rate 91 H 12/02/24 08:44 Respiratory Rate 18 12/02/24 08:44 Blood Pressure 138/94 H 12/02/24 08:44 Pulse Oximetry 98 12/02/24 08:44 Oxygen Delivery Method Room Air 12/02/24 08:44 Course Orders Ordered: ED Orders 12/02/24 08:41 XR knee RT 3V Stat 12/02/24 08:42 EKG-12 Lead Stat 12/02/24 08:43 CT head/brain wo con Stat 12/02/24 08:48 Respiratory Panel (Film Array) Stat 12/02/24 08:50 Complete Blood Count AUTO DIFF Stat Comprehensive Metabolic Panel Stat Test Serum,Qual Stat 12/02/24 09:45 Urine Drug Screen, Rapid Stat Urine Microscopic Stat 12/02/24 10:36 XR chest 1V Stat 12/02/24 10:38 Iron Stat Discontinued Medications Acetaminophen (Acetaminophen 325 Mg Tablet) 975 mg PO NOW ONE Stop: 12/02/24 08:44 Last Admin: 12/02/24 09:31 Dose: 975 mg Documented By: RLS Diphenhydramine HCl (Diphenhydramine 50 Mg/Ml Vial) 25 mg IV NOW ONE Stop: 12/02/24 10:36 Last Admin: 12/02/24 10:53 Dose: 25 mg Documented By: RLS Sodium Chloride (Normal Saline 0.9%) 1,000 mls @ 1,000 mls/hr IV BOLUS ONE Stop: 12/02/24 10:21 Last Infusion: 12/02/24 11:04 Dose: Infused Documented By: Admin: 12/02/24 09:30 Dose: 1,000 mls/hr Documented By: RICHARDSON Sodium Chloride (Normal Saline 0.9%) 1,000 mls @ 1,000 mls/hr IV BOLUS ONE Stop: 12/02/24 11:35 Last Admin: 12/02/24 10:51 Dose: 1,000 mls/hr Documented By: RICHARDSON Ketorolac Tromethamine (Ketorolac 30 Mg/Ml Vial) 15 mg IV NOW ONE Stop: 12/02/24 10:36 Last Admin: 12/02/24 10:53 Dose: 15 mg Documented By: RICHARDSON Vital Signs Vital signs: Vital Signs - 8 hr 12/02/24 09:42 12/02/24 10:00 12/02/24 10:00 Temperature Pulse Rate 87 100 H Respiratory Rate 17 29 H Blood Pressure 151/104 H Pulse Oximetry 99 99 12/02/24 10:30 12/02/24 10:30 12/02/24 10:46 Temperature Pulse Rate 95 H 93 H Respiratory Rate 28 H 25 H Blood Pressure 162/115 H Pulse Oximetry 99 99 12/02/24 10:46 12/02/24 11:00 12/02/24 11:00 Temperature Pulse Rate 89 Respiratory Rate 21 Blood Pressure 160/97 H 148/91 H Pulse Oximetry 98 12/02/24 11:30 12/02/24 11:30 12/02/24 12:00 Temperature 100.3 F H Pulse Rate 101 H Respiratory Rate Blood Pressure 140/86 Pulse Oximetry 98 MDM - Dizziness Lab Data 12/02/24 08:50 12/02/24 08:50 Labs: Lab Results 12/02/24 12/02/24 12/02/24 Range/Units 08:48 08:50 09:45 WBC 12.6 H (4.5-11.0) X10^3/uL RBC 5.50 H (4.0-5.2) X10^6/uL Hgb 12.2 (12.0-16.0) g/dL Hct 38.3 (36-46) % MCV 69.7 L (80-100) fL MCH 22.2 L (26-34) PG MCHC 31.8 (30-36) % RDW 19.8 H (11.6-14.8) % Plt Count 499 H (150-400) X10^3/uL Neut % (Auto) 79.3 H (50-75) % Lymph % (Auto) 14.2 L (25-40) % [place] % (Auto) 5.5 (3-14) % Eos % (Auto) 0.1 L (2-4) % Baso % (Auto) 0.9 (0-2) % Neut # (Auto) 73754 H (5853-2920) /uL Lymph # (Auto) 1800 (6175-7149) /uL [place] # (Auto) 700 (0-900) /uL Eos # (Auto) 0 (0-450) /uL Baso # (Auto) 100 (0-100) /uL RBC Morphology See below Polychromasia 1+ H Microcytosis 2+ H Sodium 137 (137-145) mmol/L Potassium 3.7 (3.4-5.1) mmol/L Chloride 103 (98-107) mmol/L Carbon Dioxide 13 L (22-32) mmol/L BUN 11 (7-17) mg/dL Creatinine 0.69 (0.52-1.04) mg/dL Estimated GFR > 60 (>60) mL/min BUN/Creatinine Ratio 15.9 (6-22) Glucose 99 (70-99) mg/dL Calcium 10.1 (8.4-10.2) mg/dL Iron (37-170) ug/dL Total Bilirubin 1.1 (0.2-1.3) mg/dL AST 32 (14-36) IU/L ALT 42 H (<35) IU/L Alkaline Phosphatase 97 (38-126) U/L Total Protein 9.7 H (6.3-8.2) g/dL Albumin 5.3 H (3.5-5.0) g/dL Globulin 4.4 H (1.7-4.1) g/dL Albumin/Globulin Ratio 1.2 (1.0-2.8) Serum , Qual Negative (Negative) Urine RBC 1-5/hpf (0-5/HPF) Urine WBC None seen (0-5/HPF) Ur Squamous Epith Cells 1-5 /hpf (0-5/HPF) Urine Bacteria None seen (None) Ur Culture Indicated? Cult not indicated Vol Urine Centrifuged 10ml (spun) U Opiates 300ng/mL cut Negative (Negative) Ur Oxycodone Screen Positive H (Negative) Urine Methadone Screen Negative (Negative) Ur Barbiturates Screen Negative (Negative) U Tricyclic Antidepress Negative (Negative) Ur Phencyclidine Scrn Negative (Negative) Ur Amphetamines Screen Negative (Negative) U Methamphetamines Scrn Negative (Negative) Ur MDMA Scrn (Ecstasy) Negative (Negative) U Benzodiazepines Scrn Negative (Negative) Urine Cocaine Screen Negative (Negative) U Marijuana (THC) Screen Positive H (Negative) Urine pH Normal (Normal) Urine Specific [place] Normal (Normal) Ur Creatinine Normal (Normal) Chlamy pneumoniae PCR Not detected (Not Detect) Adenovirus (PCR) Not detected (Not Detect) B. pertussis DNA (PCR) Not detected (Not Detect) B.parapertussis DNA PCR Not detected (Not Detecte) Coronavirus OC43 (PCR) Not detected (Not Detect) Coronavirus HKU1 (PCR) Not detected (Not Detect) Coronavirus 229E (PCR) Not detected (Not Detect) SARS-CoV-2 (PCR) Not detected (Not Detecte) Coronavirus NL63 (PCR) Not detected (Not Detect) Human Metapneumovir PCR Not detected (Not Detect) Influenza Type A (PCR) Not detected (Not Detect) Influenza Type B (PCR) Not detected (Not Detect) M. pneumoniae (PCR) Not detected (Not Detect) Parainfluenza 1 (PCR) Not detected (Not Detect) Parainfluenza 2 (PCR) Not detected (Not Detect) Parainfluenza 3 (PCR) Not detected (Not Detect) Parainfluenza 4 (PCR) Not detected (Not Detect) RSV (PCR) Not detected (Not Detect) Entero/Rhino (PCR) Not detected (Not Detect) 12/02/ Range/Units 10:38 WBC (4.5-11.0) X10^3/uL RBC (4.0-5.2) X10^6/uL Hgb (12.0-16.0) g/dL Hct (36-46) % MCV (80-100) fL MCH (26-34) PG MCHC (30-36) % RDW (11.6-14.8) % Plt Count (150-400) X10^3/uL Neut % (Auto) (50-75) % Lymph % (Auto) (25-40) % [place] % (Auto) (3-14) % Eos % (Auto) (2-4) % Baso % (Auto) (0-2) % Neut # (Auto) (6677-3502) /uL Lymph # (Auto) (4709-7691) /uL [place] # (Auto) (0-900) /uL Eos # (Auto) (0-450) /uL Baso # (Auto) (0-100) /uL RBC Morphology Polychromasia Microcytosis Sodium (137-145) mmol/L Potassium (3.4-5.1) mmol/L Chloride (98-107) mmol/L Carbon Dioxide (22-32) mmol/L BUN (7-17) mg/dL Creatinine (0.52-1.04) mg/dL Estimated GFR (>60) mL/min BUN/Creatinine Ratio (6-22) Glucose (70-99) mg/dL Calcium (8.4-10.2) mg/dL Iron 64 (37-170) ug/dL Total Bilirubin (0.2-1.3) mg/dL AST (14-36) IU/L ALT (<35) IU/L Alkaline Phosphatase (38-126) U/L Total Protein (6.3-8.2) g/dL Albumin (3.5-5.0) g/dL Globulin (1.7-4.1) g/dL Albumin/Globulin Ratio (1.0-2.8) Serum , Qual (Negative) Urine RBC (0-5/HPF) Urine WBC (0-5/HPF) Ur Squamous Epith Cells (0-5/HPF) Urine Bacteria (None) Ur Culture Indicated? Vol Urine Centrifuged U Opiates 300ng/mL cut (Negative) Ur Oxycodone Screen (Negative) Urine Methadone Screen (Negative) Ur Barbiturates Screen (Negative) U Tricyclic Antidepress (Negative) Ur Phencyclidine Scrn (Negative) Ur Amphetamines Screen (Negative) U Methamphetamines Scrn (Negative) Ur MDMA Scrn (Ecstasy) (Negative) U Benzodiazepines Scrn (Negative) Urine Cocaine Screen (Negative) U Marijuana (THC) Screen (Negative) Urine pH (Normal) Urine Specific [place] (Normal) Ur Creatinine (Normal) Chlamy pneumoniae PCR (Not Detect) Adenovirus (PCR) (Not Detect) B. pertussis DNA (PCR) (Not Detect) B.parapertussis DNA PCR (Not Detecte) Coronavirus OC43 (PCR) (Not Detect) Coronavirus HKU1 (PCR) (Not Detect) Coronavirus 229E (PCR) (Not Detect) SARS-CoV-2 (PCR) (Not Detecte) Coronavirus NL63 (PCR) (Not Detect) Human Metapneumovir PCR (Not Detect) Influenza Type A (PCR) (Not Detect) Influenza Type B (PCR) (Not Detect) M. pneumoniae (PCR) (Not Detect) Parainfluenza 1 (PCR) (Not Detect) Parainfluenza 2 (PCR) (Not Detect) Parainfluenza 3 (PCR) (Not Detect) Parainfluenza 4 (PCR) (Not Detect) RSV (PCR) (Not Detect) Entero/Rhino (PCR) (Not Detect) Point of Care Testing Test Results Negative Urine Dip Bedside Urine Glucose Negative Bedside Urine Bilirubin - Negative Bedside Urine Ketone +++ 80 Urine Specific [place] 1.020 Bedside Urine Occult Blood ++ Bedside Urine pH 6.0 Bedside Urine Protein + 30 Bedside Urine Urobilinogen - Negative Bedside Urine Nitrite - Negative Bedside Urine Leukocytes - Negative Esterase Imaging Data CT scan - head: Radiologist's Impression: [place] [address] CT Scan Report Signed Patient: Blanca Nicole MR#: [id number] : 1995 Acct:[id number] Age/Sex: 29 / F Date of Service: 12/02/24 Loc: ED Accession Number: [id number] Procedure: CT head/brain wo con Ordering Provider: Patrick Webster MD PROCEDURE: CT HEAD/BRAIN WO CON INDICATIONS: Dizzy/fall/right head injury TECHNIQUE: Noncontrast 4.5 mm thick angled axial sections acquired from the foramen magnum to the vertex, with coronal and sagittal reformats. For radiation dose reduction, the following was used: automated exposure control, adjustment of mA and/or kV according to patient size. COMPARISON: None. FINDINGS: Image quality: Diagnostic. CSF spaces: Basal cisterns are patent. No extra-axial fluid collections. Ventricles are normal in size and shape. Brain: No midline shift. No intracranial mass effect or hemorrhage. Perdomo-white matter interface is normal. Skull and face: Calvarium and visualized facial bones are intact, without suspicious lesions. Sinuses: Visualized sinuses and mastoids are clear. IMPRESSION: No acute intracranial pathology. Dictated by: Tai Perez M.D. on 12/02/2024 at 9:08 Approved by: Tai Perez M.D. on 12/02/2024 at 9:08 Extremity x-ray #1: Radiologist's Impression: [address] [address] XRay Report Signed Patient: Blanca Nicole MR#: [id number] : 1995 Acct:[id number] Age/Sex: 29 / F Date of Service: 12/02/24 Loc: ED Accession Number: [id number] Procedure: XR knee RT 3V Ordering Provider: Patrick Webster MD PROCEDURE: XR KNEE RT 3V INDICATIONS: Fall/pain TECHNIQUE: 3 views of the knee were acquired. COMPARISON: None. FINDINGS: Bones: No acute fractures or dislocations. No suspicious bony lesions. Soft tissues: No joint effusion. No suspicious soft tissue calcifications. Mild prepatellar subcutaneous edema. IMPRESSION: No acute osseous abnormality. If there is continued clinical concern or persistent symptoms, repeat radiographs or cross-sectional imaging (e.g. CT, MRI) may be helpful for further evaluation. Approved by: Shar Shabazz M.D. on 12/02/2024 at 9:02 [facility] Narrative Medical decision making narrative: Patient is history of anemia in the past without any previous blood transfusions or iron supplements. Is being follow up by her primary care. Patient has history of endometriosis. LMP 4 weeks ago. She does have heavy cycles. Patient states yesterday she was getting out of her car in the driveway and got lightheaded and fell to the ground. Has bruising to the right forehead right knee and left wrist. She states her left wrist does not hurt. Tetanus is up-to-date. Fever noted here. No known sick contacts. Patient is anxious. Warm pink flush skin on the face. [place] conjunctiva, brisk cap refills. Patient denies any abuse MDM After history and exam, CT head x-ray right knee CBC CMP EKG respiratory panel Tylenol Differential considered: Includes but not limited to vasovagal syndrome/response, anemia, viral syndrome dehydration Medical records reviewed: No recent visit for this complaint Lab Test results independently reviewed as above. Pertinent findings: WBC 12.6 hemoglobin 12.2 hematocrit 38.3 platelets 499 sodium 137 potassium 3.7 BUN 11 creatinine 0.69 GFR greater than 60, negative , urinalysis positive ketones, respiratory panel negative. Urinalysis negative leukocytes negative nitrite, iron level 64 Drug screen positive marijuana positive oxycodone Independently reviewed EKG sinus tachycardia rate 110 Imaging studies independently reviewed: CT head no acute finding x-ray right knee no acute finding, chest x-ray no acute finding Consultations: None indicated this time Re-evaluations: 10:31 a.m.. Updated patient results so far. She is anxious. Has some cramping to the fingers. Toradol Benadryl ordered. Normal saline repeat 500 mL ordered. X-ray chest ordered. Fever unknown origin at this time. 11:02 a.m. Reviewed with patient results. Laboratory studies imaging studies are reassuring. She could be developing viral syndrome, could be false negative viral test. Fever noted however patient denies any respiratory complaints. Patient feeling better. Return precautions reviewed. She desires discharge home. Heart rate has improved, rate 88. Patient finishing additional 500 mL of normal saline Discussion: Appropriate for discharge home. Exam is reassuring. Return precautions reviewed with patient. Patient feeling much better at time of discharge. She desires discharge home., no headache no neck pain. No altered mental status. Diagnosis: Forehead contusion, knee contusion Discharge Plan Departure Patient Disposition: Home Clinical Impression: Contusion of forehead Qualifiers: Encounter type: initial encounter Qualified Code(s): S00.83XA - Contusion of other part of head, initial encounter Contusion of knee, right Qualifiers: Encounter type: initial encounter Qualified Code(s): S80.01XA - Contusion of right knee, initial encounter Instructions: DI for Dehydration -- Adult, DI for Contusion, DI for Closed Head Injury, DI for Viral Syndrome Activity Restrictions/Additional Instructions: Your exam and laboratory studies are reassuring. Your imaging studies are reassuring. Please see your family doctor in a week for re-evaluation. Please review discharge instructions regarding head injuries and contusions. It is possible you have viral infection, the panel we did is reassuring but there are other viruses that may cause your symptoms. Keep well hydrated. Continue Tylenol or ibuprofen for pain or fever. Return if worse if any questions or concerns Prescriptions: No Action diclofenac potassium 50 mg tablet 50 mg PO DAILY sumatriptan 5 mg/actuation spray,non-aerosol 5 mg NASAL Q2-4H PRN Rx Instructions: into each nostril once; if headache remains, may repeat total dose once after at least 2 hours Referrals: Génesis Collins ARNP [Primary Care Provider, Family Practice] Stand Alone Forms: Patient Portal/API, Work Release Note
[2024-12-02 09:05] LABS: Add Manual Diff / Slide Review NO; Hematocrit 38.3 % (36-46); Hemoglobin 12.2 g/dL (12.0-16.0); Lymphocytes Absolute Auto 1800 /uL (1100-4500); Mean Corpuscular HGB Conc 31.8 % (30-36); Mean Corpuscular Hemoglobin 22.2 PG (26-34); Mean Corpuscular Volume 69.7 fL (80-100); Platelet Count 499 X10^3/uL (150-400)
[2024-12-02 09:12] LABS: Alanine Aminotransferase 42 IU/L (<35); Albumin 5.3 g/dL (3.5-5.0); Albumin Globulin Ratio 1.2 (1.0-2.8); Alkaline Phosphatase 97 U/L (38-126); Blood Urea Nitrogen 11 mg/dL (7-17); Calcium 10.1 mg/dL (8.4-10.2); Carbon Dioxide 13 mmol/L (22-32); Chloride 103 mmol/L (98-107); Estimated Glomerular Filt Rate > 60 mL/min (>60); Globulin 4.4 g/dL (1.7-4.1); Glucose 99 mg/dL (70-99); HEMOLYSIS < 15 (0-50); Potassium 3.7 mmol/L (3.4-5.1); Sodium 137 mmol/L (137-145); Total Protein 9.7 g/dL (6.3-8.2)
--- NOTE | 2024-12-02 09:13 | EKG_ITS ---
[address] [address] Test Date: 2024-12-02 Pat Name: Blanca Nicole Department: Room: Gender: Female [employer] Fe[employer]: HUSSAIN : 1995 Requested By: Order Number: [id number] Reading MD: Yovany Del Valle MD Measurements Intervals [place] Rate: 110 P: 71 ND: 150 QRS: 53 QRSD: 86 T: 50 QT: 356 QTc: 481 Interpretive Statements Sinus tachycardia Possible Left atrial enlargement Nonspecific T wave abnormality Electronically Signed On 12-02-2024 14:35:47 PDT by Yovany Del Valle MD
[2024-12-02 09:26] LABS: Microcytosis 2+; Polychromasia 1+
[2024-12-02] MEDS: SODIUM CHLORIDE 0.9% 1,000 ML 1000 ML IV ×2 (09:30→10:51)
[2024-12-02] MEDS: ACETAMINOPHEN 325 MG TABLET 975 MG PO (09:31)
[2024-12-02 09:34] LABS: Pregnancy Test Serum,Qual Negative (Negative)
[2024-12-02 09:49] LABS: Coronavirus NL 63 Not Detected (Not Detect); SARS- CoV-2 Not Detected (Not Detecte)
[2024-12-02 10:00] LABS: Culture Indicated Urine Cult Not Indicated
--- NOTE | 2024-12-02 10:36 | DI.RAD.S_ITS ---
PROCEDURE: XR CHEST 1V INDICATIONS: Cough TECHNIQUE: One view of the chest was acquired. COMPARISON: [facility], , CHEST 2 VIEW, 11/02/2014, 21:07. FINDINGS: Surgical changes and devices: None. Lungs and pleura: Lungs are clear. No pleural effusions or pneumothorax. Mediastinum: Mediastinal contours appear normal. Heart size is normal. Bones and chest wall: No suspicious bony lesions. Overlying soft tissues appear unremarkable. IMPRESSION: No acute cardiopulmonary abnormality is seen. Dictated by: Tai Perez M.D. on 12/02/2024 at 10:57 Approved by: Tai Perez M.D. on 12/02/2024 at 10:57
[2024-12-02] MEDS: diphenhydrAMINE 50 MG/ML VIAL 25 MG IV (10:53)
[2024-12-02] MEDS: KETOROLAC 30 MG/ML VIAL 15 MG IV (10:53)
[2024-12-02 10:55] LABS: Iron 64 ug/dL (37-170)
[2024-12-02 11:49] LABS: UR Morphine/Opiate cutoff 300 Negative (Negative); Ur Specific Gravity Normal (Normal); Urine MDMA Negative (Negative); Urine Methamphetamines Negative (Negative); Urine Tetrahydrocannabinol Positive (Negative); Urine Tricyclic Antidepressant Negative (Negative)
== END 2024-12-02 12:12 | disposition home or self-care (01) ==
PROVIDERS: Emergency Provider Emergency Medicine; Family Provider Nurse Practitioner Gerontology; PCP Nurse Practitioner Acute Care
DX: S00.83XA Contusion of other part of head, initial encounter (principal); S80.01XA Contusion of right knee, initial encounter; S60.212A Contusion of left wrist, initial encounter; S09.90XA Unspecified injury of head, initial encounter; D64.9 Anemia, unspecified; R42 Dizziness and giddiness; R50.9 Fever, unspecified; W18.30XA Fall on same level, unspecified, initial encounter
CPT/HCPCS: 36415; 70450; 71045; 73562; 80053; 80305; 81003; 81015; 81025; 83540; 84703; 85025; 87633; 93005; 93010; 96361; 96374; 96375; 99285; J1200; J1885; J7030

== ENCOUNTER 2025-01-25 14:38 | Emergency (ER) | payer OTHER, SELFPAY ==
[2025-01-25] VITALS (11 sets, daily range): BP systolic 140–172; BP diastolic 89–104; PULSE 66–94; RESP 15–26; TEMP 36.4; O2SAT 93–96; BMI 27.3
--- NOTE | 2025-01-25 15:06 | ED.ABDPAIN ---
HPI - Abdominal Pain General Chief Complaint: Abdominal Pain Stated Complaint: N/V possible seizure Time Seen by Provider: 01/25/25 15:04 Source: patient Mode of arrival: Wheelchair History of Present Illness HPI narrative: 29-year-old female patient with a history of endometriosis, asthma, migraine headaches, dysmenorrhea and menorrhagia leading to anemia, anxiety and chronic gastrointestinal problems/cyclic vomiting syndrome who underwent upper and lower endoscopy 1 week ago. She said she has an asthma attack during or after the procedure. Since then she has had throat soreness and trouble swallowing and feels like she is probably dehydrated. She complains of nausea, vomiting, weakness and abdominal pain starting up this morning which is similar to previous episodes and ER visits which have been diagnosed as probable cyclic vomiting syndrome or hyperemesis cannabis. She is being seen by a specialist at the [facility] and Gastroenterology, allergy and has an appointment for Neurology in February or March. She is scheduled to have a brain MRI later this week as part of a workup for MS. She admits to having anxiety secondary to all of her symptoms and probably hyperventilating causing spasms in the hands and feet which she has had before. Related Data Home Medications ?Medication ?Instructions ?Recorded ?Confirmed diclofenac potassium 50 mg tablet 50 mg PO DAILY 10/26/19 02/18/20 sumatriptan 5 mg/actuation nasal 5 mg intranasal Q2-4H PRN 10/26/19 02/18/20 spray Allergies Allergy/AdvReac Type Severity Reaction Status Date / Time No Known Drug Allergies Allergy Verified 01/25/25 14:46 Review of Systems Review of Systems ROS Unobtainable: All systems reviewed & are unremarkable except as noted in HPI and below ENT Ears, Nose, Mouth, and Throat: Reports as per HPI Respiratory Respiratory: Reports as per HPI Gastrointestinal Gastrointestinal: Reports as per HPI Musculoskeletal Musculoskeletal: Reports as per HPI Neurologic Neurologic: Reports as per HPI Psychiatric Psychiatric: Reports as per HPI Patient History Medical History Anxiety Dysmenorrhea Endometriosis History of gastritis History of migraine headaches Menorrhagia Surgical History (Updated 10/28/17 @ 15:16 by Kia Gallardo LPN) Status post surgery (10/06/17) Social History household members: friend(s) Smoking Status: Former smoker Smoking Status: Former smoker tobacco type: cigarettes Exam Narrative Exam Narrative: General: Alert and conversant. [id number] distress. Appears well nourished and well hydrated Craniofacial: No evidence of trauma. Nontender and no swelling. Eyes: PERRLA EOMI conjunctiva clear Lungs: Clear to auscultation with good air movement. No wheezing, rales or rhonchi. No respiratory distress Cardiac: Regular rate and rhythm with no appreciable murmur or gallop Abdomen: Soft, diffuse mild tenderness. With no distention or masses. Normal bowel sounds. No rebound or guarding Musculoskeletal: Patient has hand/carpal spasms as well as some pedal spasms. Otherwise Exam of the extremities, axial spine and ribcage reveals no deformity, bony tenderness or swelling. Range of motion intact Neuro: Alert and oriented. Cranial nerves, motor, sensory and cerebellar all grossly intact. No focal deficit Skin: Warm and normal color. No rashes Psychological: Normal affect and interaction. No evidence of delusion or psychosis. Normal mood. Initial Vital Signs Initial Vital Signs: Vital Signs Temperature 97.5 F L 01/25/25 14:46 Pulse Rate 94 H 01/25/25 14:46 Respiratory Rate 26 H 01/25/25 14:46 Blood Pressure 172/98 H 01/25/25 14:46 Pulse Oximetry 96 01/25/25 14:46 Oxygen Delivery Method Room Air 01/25/25 14:46 Course Orders Ordered: ED Orders 01/25/25 15:00 Complete Blood Count AUTO DIFF Stat Comprehensive Metabolic Panel Stat Lipase Stat Magnesium Stat Discontinued Medications Diphenhydramine HCl (Diphenhydramine 50 Mg/Ml Vial) 50 mg IV NOW ONE Stop: 01/25/25 15:18 Last Admin: 01/25/25 15:34 Dose: 50 mg Documented By: VALENCIA Haloperidol (Haloperidol 5 Mg/Ml Vial) 5 mg IV NOW ONE Stop: 01/25/25 15:18 Last Admin: 01/25/25 15:34 Dose: 5 mg Documented By: VALENCIA Dextrose/Sodium Chloride (Dextrose 5%-0.45% Ns) 500 mls @ 1,000 mls/hr IV BOLUS ONE Stop: 01/25/25 15:46 Last Infusion: 01/25/25 16:24 Dose: Infused Documented By: Admin: 01/25/25 15:34 Dose: 1,000 mls/hr Documented By: VALENCIA Ondansetron HCl (Ondansetron 4 Mg/2 Ml Inj) 4 mg IV NOW PRN PRN Reason: Nausea And Vomiting Ondansetron HCl (Ondansetron 4 Mg Odt) 4 mg PO NOW PRN PRN Reason: Nausea And Vomiting Vital Signs Vital signs: Vital Signs - 8 hr 01/25/25 15:18 01/25/25 15:30 01/25/25 15:30 Pulse Rate 83 81 Respiratory Rate 16 16 Blood Pressure 154/104 H Pulse Oximetry 96 96 Oxygen Delivery Method 01/25/25 16:00 01/25/25 16:00 01/25/25 16:30 Pulse Rate 77 Respiratory Rate 20 Blood Pressure 162/101 H 149/95 H Pulse Oximetry 96 Oxygen Delivery Method 01/25/25 16:30 01/25/25 17:00 01/25/25 17:01 Pulse Rate 73 84 Respiratory Rate 18 16 Blood Pressure 153/89 H Pulse Oximetry 94 93 Oxygen Delivery Method Room Air 01/25/25 17:01 01/25/25 17:30 01/25/25 17:38 Pulse Rate 66 81 Respiratory Rate 15 24 Blood Pressure 156/100 H Pulse Oximetry 96 93 Oxygen Delivery Method Room Air 01/25/25 17:38 01/25/25 18:00 01/25/25 18:00 Pulse Rate 81 75 Respiratory Rate 19 19 Blood Pressure 154/96 H Pulse Oximetry 96 96 Oxygen Delivery Method 01/25/25 18:30 01/25/25 18:30 Pulse Rate 87 Respiratory Rate 19 Blood Pressure 140/93 H Pulse Oximetry 96 Oxygen Delivery Method Room Air MDM - Abdominal Pain Differential Diagnosis Differential diagnosis: Likely abdominal pain, gastroenteritis and other (Cyclic vomiting) Lab Data Attestation: I reviewed the patient's lab results. 01/25/25 15:00 01/25/25 15:00 Labs: Lab Results 01/25/25 Range/Units 15:00 WBC 9.0 (4.5-11.0) X10^3/uL RBC 5.19 (4.0-5.2) X10^6/uL Hgb 11.9 L (12.0-16.0) g/dL Hct 36.8 (36-46) % MCV 70.9 L (80-100) fL MCH 22.8 L (26-34) PG MCHC 32.2 (30-36) % RDW 20.2 H (11.6-14.8) % Plt Count 488 H (150-400) X10^3/uL Neut % (Auto) 90.6 H (50-75) % Lymph % (Auto) 6.9 L (25-40) % [place] % (Auto) 1.8 L (3-14) % Eos % (Auto) 0.0 L (2-4) % Baso % (Auto) 0.7 (0-2) % Neut # (Auto) 8200 H (2514-3588) /uL Lymph # (Auto) 600 L (3115-9942) /uL [place] # (Auto) 200 (0-900) /uL Eos # (Auto) 0 (0-450) /uL Baso # (Auto) 100 (0-100) /uL Sodium 140 (137-145) mmol/L Potassium 4.2 (3.4-5.1) mmol/L Chloride 106 (98-107) mmol/L Carbon Dioxide 16 L (22-32) mmol/L BUN 11 (7-17) mg/dL Creatinine 0.61 (0.52-1.04) mg/dL Estimated GFR > 60 (>60) mL/min BUN/Creatinine Ratio 18.0 (6-22) Glucose 131 H (70-99) mg/dL Calcium 9.9 (8.4-10.2) mg/dL Magnesium 1.6 (1.6-2.3) mg/dL Total Bilirubin 0.9 (0.2-1.3) mg/dL AST 35 (14-36) IU/L ALT 40 H (<35) IU/L Alkaline Phosphatase 114 (38-126) U/L Total Protein 9.3 H (6.3-8.2) g/dL Albumin 5.1 H (3.5-5.0) g/dL Globulin 4.2 H (1.7-4.1) g/dL Albumin/Globulin Ratio 1.2 (1.0-2.8) Lipase 46 (23-300) U/L [facility] Narrative Medical decision making narrative: Patient has improved with IV fluids, haloperidol, ondansetron and diphenhydramine. She has no further hand or foot spasms and less nausea. She does feel weak all over. Patient has recurrent problems with what appears to be cyclic vomiting syndrome or cannabis hyperemesis syndrome. Also underlying anxiety and other mental health issues exacerbating her symptoms. Currently stable enough for discharge home to continue her current medications and hydration. Follow up with primary care within next few days for reassessment. Return to the ER for Discharge Plan Departure Patient Disposition: Home Clinical Impression: Cyclic vomiting syndrome, Spasms of the hands or feet, Anxiety Instructions: DI for Anxiety -- Adult, Cannabinoid Hyperemesis Syndrome, DI for Cyclic Vomiting Syndrome-Adult Activity Restrictions/Additional Instructions: Plan: Continue current medications. Hydration, rest and supportive care. Contact your doctor tomorrow morning for close follow-up. Return to the ER if worse. Prescriptions: No Action diclofenac potassium 50 mg tablet 50 mg PO DAILY sumatriptan 5 mg/actuation spray,non-aerosol 5 mg NASAL Q2-4H PRN Rx Instructions: into each nostril once; if headache remains, may repeat total dose once after at least 2 hours Referrals: Génesis Collins ARNP [Primary Care Provider, Family Practice] Stand Alone Forms: Patient Portal/API
[2025-01-25 15:16] LABS: Add Manual Diff / Slide Review NO; Hematocrit 36.8 % (36-46); Hemoglobin 11.9 g/dL (12.0-16.0); Lymphocytes Absolute Auto 600 /uL (1100-4500); Mean Corpuscular HGB Conc 32.2 % (30-36); Mean Corpuscular Hemoglobin 22.8 PG (26-34); Mean Corpuscular Volume 70.9 fL (80-100); Platelet Count 488 X10^3/uL (150-400)
--- NOTE | 2025-01-25 15:18 | PC.NURSE ---
Patient ok to have ice chips per ED provider.
[2025-01-25 15:29] LABS: Alanine Aminotransferase 40 IU/L (<35); Albumin 5.1 g/dL (3.5-5.0); Albumin Globulin Ratio 1.2 (1.0-2.8); Alkaline Phosphatase 114 U/L (38-126); Blood Urea Nitrogen 11 mg/dL (7-17); Calcium 9.9 mg/dL (8.4-10.2); Carbon Dioxide 16 mmol/L (22-32); Chloride 106 mmol/L (98-107); Estimated Glomerular Filt Rate > 60 mL/min (>60); Globulin 4.2 g/dL (1.7-4.1); Glucose 131 mg/dL (70-99); HEMOLYSIS < 15 (0-50); Lipase 46 U/L (23-300); Potassium 4.2 mmol/L (3.4-5.1); Sodium 140 mmol/L (137-145); Total Protein 9.3 g/dL (6.3-8.2)
[2025-01-25 15:30] LABS: Magnesium 1.6 mg/dL (1.6-2.3)
[2025-01-25] MEDS: HALOPERIDOL 5 MG/ML VIAL IV (15:34)
[2025-01-25] MEDS: diphenhydrAMINE 50 MG/ML VIAL IV (15:34)
[2025-01-25] MEDS: DEXTROSE 5%-0.45% NS 500 ML 1000 ML IV (15:34)
== END 2025-01-25 18:53 | disposition home or self-care (01) ==
PROVIDERS: Emergency Medicine; Emergency Provider Emergency Medicine; Family Provider Nurse Practitioner Gerontology; PCP Nurse Practitioner Acute Care
DX: R11.15 Cyclical vomiting syndrome unrelated to migraine (principal); R10.9 Unspecified abdominal pain; M62.838 Other muscle spasm; F41.9 Anxiety disorder, unspecified
CPT/HCPCS: 36415; 80053; 83690; 83735; 85025; 96365; 96375; 96376; 99284; J1200; J1630